=== PATIENT | female | born 1995 | race Caucasian/White ===

== ENCOUNTER 2018-11-13 17:26 | Emergency (ER) | payer OTHER ==
[~2018-11-13] VITALS: Ht 157.5 cm; Wt 46.4 kg
[2018-11-13 17:30] VITALS: BP 132/92
--- NOTE | 2018-11-13 17:40 | NUR ---
PT AMBULATED TO BED 8
--- NOTE | 2018-11-13 17:42 | NUR ---
URINE COLLECTED AND SENT TO LAB
--- NOTE | 2018-11-13 17:47 | NUR ---
PT C/O 04/10 SHARP EPIGASTRIC PAIN X 3 DAYS ACCOMPANIED BY NAUSEA, DIARRHEA X 3 WEEKS. PT DENIES VOMITING/FEVER. PER PT, SHE WAS TREATED FOR H. PYLORI & THE SAME SYMPTOMS 3 WEEKS AGO W/ ANTIBIOTICS. PT REPORTS LOSING 15LBS IN THE LAST 3 MONTHS DUE TO NAUSEA/PAIN. LBM 11/13/18, DIARRHEA, BOWEL SOUNDS X4 QUADRANTS, ABDOMEN SOFT/FLAT/NON TENDER. BED IN LOW POSITION.
--- NOTE | 2018-11-13 18:20 | NUR ---
ERMD AT BEDSIDE
[2018-11-13] MEDS ORDERED: KETOROLAC 60 MG/2 ML VIAL IM ONE (18:30)
[2018-11-13] MEDS ORDERED: HYDROcodone/APAP 5/325 MG 1 TAB TAB PO ONE (19:20)
[2018-11-13 19:30] VITALS: BP 127/84
--- NOTE | 2018-11-13 19:31 | NUR ---
Patient discharged with v/s stable. Written and verbal after care instructions given and explained. Patient alert, oriented and verbalized understanding of instructions. Ambulatory with steady gait. All questions addressed prior to discharge. ID band removed. Patient advised to follow up with PMD. Rx of NORCO, IBUPROFEN, ZOFRAN given. Patient educated on indication of medication including possible reaction and side effects. Opportunity to ask questions provided and answered.
== END 2018-11-13 19:31 | disposition home or self-care (01) ==
LOC: MED 17:26
DX: R10.13 Epigastric pain (principal); R11.0 Nausea; R19.7 Diarrhea, unspecified
CPT/HCPCS: 81002; 81025; 96372; 99283; J1885